=== PATIENT | male | born 1995 | race Caucasian/White ===

== ENCOUNTER 2023-02-18 10:14 | Emergency (ER) | payer SELFPAY | END 2023-02-18 11:11 | disposition home or self-care (01) | LOC: MW.ED 10:14 | DX: U07.1 COVID-19 (principal); Z79.899 Other long term (current) drug therapy; Z88.2 Allergy status to sulfonamides | CPT/HCPCS: 99283 ==

== ENCOUNTER 2023-02-21 10:00 | Emergency (ER) | payer BC ==
[2023-02-21] MEDS ORDERED: Sucralfate Suspension 1 GM/10 ML Cup PO ONE (10:15)
[2023-02-21] MEDS ORDERED: Ondansetron 4 MG Tab.DIS PO ONE (10:15)
[2023-02-21 10:31] LABS: BASOPHILS PERCENT AUTO 0.4 % (0.0-1.5); EOSINOPHILS PERCENT AUTO 0.2 % (0.0-7.0); HEMATOCRIT 44.8 % (38.0-50.0); HEMOGLOBIN 15.7 g/dL (13.0-17.0); LYMPHOCYTES ABSOLUTE AUTO 1.6 K/uL (0.6-2.4); LYMPHOCYTES PERCENT AUTO 31.6 % (16.0-40.0); MEAN CORPUSCULAR HEMOGLOBIN 30.4 pg (27.0-32.0); MEAN CORPUSCULAR VOLUME 86.7 fL (80.0-98.0); MONOCYTES ABSOLUTE AUTO 0.3 K/uL (0.0-0.8); MONOCYTES PERCENT AUTO 6.3 % (0.0-15.0); NEUTROPHILS PERCENT AUTO 61.5 % (48.0-80.0); NRBC ABSOLUTE 0 K/uL; PLATELET COUNT,PLT 232 K/uL (150-400); RED BLOOD CELL COUNT 5.17 M/uL (4.50-5.90)
[2023-02-21 11:22] LABS: A/G RATIO 1.2 (0.9-1.6); ALANINE AMINOTRANSFERASE,ALT 41 IU/L (14-63); ALBUMIN 3.9 g/dL (3.4-5.0); ALKALINE PHOSPHATASE 66 U/L (46-116); ASPARTATE AMNIOTRANSFERASE,AST 43 IU/L (15-37); BILIRUBIN TOTAL 0.6 mg/dL (0.2-1.0); BLOOD UREA NITROGEN,BUN 14 mg/dL (7.0-18.0); CALCIUM 8.2 mg/dL (8.5-10.1); CARBON DIOXIDE,CO2 28.1 mmol/L (21.0-32.0); CHLORIDE,CL 99 mmol/L (98-107); CREATININE 1.2 mg/dL (0.8-1.3); GLUCOSE RANDOM 103 mg/dL (74-106); LIPASE 51 U/L (16-77); PROTEIN TOTAL,TP 7.1 g/dL (6.4-8.2); SODIUM,NA 137 mmol/L (136-148)
[2023-02-21 11:27] LABS: ESTIMATED GFR 84 mL/min (>60)
== END 2023-02-21 11:46 | disposition home or self-care (01) ==
LOC: MW.ED 10:00
DX: U07.1 COVID-19 (principal); K29.00 Acute gastritis without bleeding; Z88.2 Allergy status to sulfonamides
CPT/HCPCS: 36415; 80053; 83690; 85025; 99284; A9270; 99283